=== PATIENT | female | born 1960 | race Caucasian/White ===

== ENCOUNTER 2017-10-11 06:02 | Inpatient (IN) | payer MEDICARE ==
[2017-10-09 17:18] LABS: MICROSCOPIC NOT IND
[2017-10-09 17:20] LABS: BASOPHILS # (AUTO) 0.05 x10^3/uL (0-0.1); BASOPHILS % (AUTO) 1 % (0-1); EOSINOPHILS # (AUTO) 0.23 x10^3/uL (0-0.4); EOSINOPHILS % (AUTO) 5 % (1-7); LYMPHOCYTES # (AUTO) 1.68 x10^3/uL (1-3.4); LYMPHOCYTES % (AUTO) 34 % (22-44); MD NO; MEAN CORPUSCULAR HEMOGLOBIN 31.3 pg (27.0-34.8); MEAN CORPUSCULAR VOLUME 92.2 fL (80-100); MEAN PLATELET VOLUME 7.9 fL (7.4-10.4); MONOCYTES # (AUTO) 0.49 x10^3/uL (0.2-0.8); MONOCYTES % (AUTO) 10 % (2-9); NEUTROPHILS # (AUTO) 2.44 x10^3/uL (1.8-6.8); NEUTROPHILS % (AUTO) 50 % (42-75); PLATELET COUNT 241 x10^3/uL (130-400); RED BLOOD COUNT 4.18 x10^6/uL (3.82-5.3)
[2017-10-09 17:24] LABS: ANION GAP 6 mmol/L (5-15); CHLORIDE 103 mmol/L (98-107); CREATININE 0.86 mg/dL (0.55-1.02)
[2017-10-09 17:32] LABS: INTERNATIONAL NORMALIZED RATIO 0.97 (0.93-1.1)
[2017-10-09 17:37] LABS: HCT (SEDRATE) 38.6 % (34.6-47.8)
[~2017-10-11] VITALS: Ht 172.7 cm; Wt 63.0 kg
[~2017-10-11 06:02] MED LIST: AMPH20TA2 PO; DIAZ5TAB PO; ESTR1PAT10 TD; GABA-826 PO; OXYC-306 PO
[2017-10-11 06:26] VITALS: BP 139/89
[2017-10-11] MEDS ORDERED: LACTATED RINGERS 1,000 ML IV SCH (06:32)
[2017-10-11] MEDS ORDERED: LIDOCAINE-MPF 1%, 2ML ONE (06:33)
[2017-10-11] MEDS ORDERED: LIDOCAINE-MPF 2%, 2ML ONE (06:34)
[2017-10-11] MEDS ORDERED: LIDOCAINE-MPF 1%, 2ML INFIL ONE (07:00)
[2017-10-11] MEDS ORDERED: BUPIVACAINE/PF-EPI 0.5% 1:200K ONE (07:35)
[2017-10-11] MEDS ORDERED: BACITRACIN 50,000 UNIT ONE (07:36)
[2017-10-11] MEDS ORDERED: THROMBIN 20,000 UNIT VIAL TP ONE (07:36)
[2017-10-11] MEDS ORDERED: TRANEXAMIC ACID 100 MG/ML, 10ML ONE (07:36)
[2017-10-11] MEDS ORDERED: MIDAZOLAM 1 MG/ML, 2ML ONE (07:40)
[2017-10-11] MEDS ORDERED: FENTANYL PF 100 MCG/2ML ONE ×2 (07:40→10:23)
[2017-10-11] MEDS ORDERED: PROPOFOL 50 ML ONE ×2 (07:42→09:11)
[2017-10-11] MEDS ORDERED: SCOPOLAMINE PATCH, 1.5MG PATCH.TD72 TD ONE (08:00)
[2017-10-11] MEDS ORDERED: OXYcodone IR 5MG TABLET PO ONE (08:00)
[2017-10-11] MEDS ORDERED: ACETAMINOPHEN 500 MG TABLET PO ONE (08:00)
[2017-10-11] MEDS ORDERED: GABAPENTIN 300 MG CAPSULE PO ONE (08:00)
[2017-10-11] MEDS ORDERED: FAMOTIDINE 20 MG TABLET PO ONE (08:00)
[2017-10-11] MEDS ORDERED: DIAZEPAM 5 MG TABLET PO ONE (08:00)
[2017-10-11] MEDS ORDERED: ONDANSETRON 2MG/ML, 2ML IVPush ONE (08:00)
[2017-10-11] MEDS ORDERED: HYDROmorphone 2 MG/ML, 1ML ONE (10:23)
[2017-10-11] MEDS: FENTANYL PF 100 MCG/2ML IV PRN ×2 (10:25→10:41)
[2017-10-11] MEDS ORDERED: KETOROLAC 30 MG/1 ML ONE (10:28)
[2017-10-11] MEDS ORDERED: ONDANSETRON 2MG/ML, 2ML IV PRN ×2 (10:30→13:30)
[2017-10-11] MEDS ORDERED: LABETALOL 5MG/ML, 20ML IV PRN ×2 (10:30→13:30)
[2017-10-11] MEDS ORDERED: MIDAZOLAM 1 MG/ML, 2ML IV PRN (10:30)
[2017-10-11] MEDS ORDERED: DIAZEPAM 5 MG/ML, 2ML IV PRN ×2 (10:30→13:30)
[2017-10-11] MEDS ORDERED: OXYcodone 5 MG/5 ML ORAL.SOL UDC PO PRN (10:30)
[2017-10-11] MEDS ORDERED: EPHEDRINE 50 MG/ML, 1ML IVPush PRN (10:30)
[2017-10-11] MEDS ORDERED: MEPERIDINE/PF 25MG/0.5ML IVPush PRN (10:30)
[2017-10-11] MEDS ORDERED: hydrALAzine 20 MG/ML, 1ML IV PRN (10:30)
[2017-10-11] MEDS ORDERED: HYDROmorphone 2 MG/ML, 1ML IV PRN (10:30)
[2017-10-11] MEDS ORDERED: ALBUTEROL SULFATE 2.5 MG/3 ML NPPB PRN (10:30)
[2017-10-11] MEDS ORDERED: OXYcodone 5 MG/5 ML ORAL.SOL UDC ONE (11:11)
[2017-10-11 11:55] VITALS: BP 138/95
[2017-10-11] MEDS ORDERED: morphine SULFATE 10 MG/ML, 1ML ONE (13:11)
[2017-10-11] MEDS: morphine SULFATE 10 MG/ML, 1ML IV PRN ×2 (13:20→22:25)
[2017-10-11] MEDS ORDERED: ACETAMINOPHEN 650 MG SUPP PR PRN (13:30)
[2017-10-11] MEDS ORDERED: DIAZEPAM 5 MG TABLET PO PRN ×2 (13:30→14:00)
[2017-10-11] MEDS ORDERED: KETOROLAC 30 MG/1 ML IV ONE (13:30)
[2017-10-11] MEDS ORDERED: ACETAMINOPHEN 500 MG TABLET PO PRN (13:30)
[2017-10-11] MEDS ORDERED: LORazepam 1MG TABLET PO PRN (13:30)
[2017-10-11] MEDS ORDERED: ACETAMINOPHEN 325 MG TABLET PO PRN (13:30)
[2017-10-11] MEDS ORDERED: MAGNESIUM HYDROXIDE 8%, 30ML UDC PO PRN (13:30)
[2017-10-11] MEDS ORDERED: BISACODYL 10 MG SUPP PR PRN (13:30)
[2017-10-11] MEDS ORDERED: OXYcodone IR 5MG TABLET PO PRN (13:30)
[2017-10-11] MEDS ORDERED: PROMETHAZINE 25 MG/ML, 1ML IM PRN (13:30)
[2017-10-11] MEDS: LABETALOL 5MG/ML, 20ML IV SCH ×2 (13:47→22:26)
[2017-10-11] MEDS ORDERED: SODIUM CHLORIDE 0.9% 1,000 ML IV PRN (14:00)
[2017-10-11] MEDS ORDERED: ESTRADIOL 0.1 MG/24 HR PATCH TD SCH (14:00)
[2017-10-11 14:18] VITALS: BP 148/91
[2017-10-11] MEDS: OXYcodone IR 5MG TABLET PO PRN ×2 (14:45→18:44)
[2017-10-11] MEDS ORDERED: CEFAZOLIN 1,000 MG ONE (15:49)
[2017-10-11] MEDS ORDERED: PROPOFOL 10 MG/ML, 20ML ONE (15:49)
[2017-10-11] MEDS ORDERED: ONDANSETRON 2MG/ML, 2ML ONE (15:49)
[2017-10-11] MEDS ORDERED: ROCURONIUM 10MG/ML,5ML ONE (15:49)
[2017-10-11] MEDS ORDERED: SUCCINYLCHOLINE 20 MG/ML, 10ML ONE (15:49)
[2017-10-11] MEDS ORDERED: DEXAMETHASONE 4 MG/ML, 1ML ONE (15:49)
[2017-10-11] MEDS: D5%-0.9% NACL+KCL 20MEQ 1,000 ML IV SCH (16:39)
[2017-10-11] MEDS: CEFAZOLIN PMX 1GM/50ML 50 ML IVPB SCH (16:39)
[2017-10-11] MEDS: GABAPENTIN 100 MG CAPSULE PO SCH ×2 (16:39→22:25)
[2017-10-11 18:39] VITALS: BP 135/86
[2017-10-11] MEDS ORDERED: ZOLPIDEM 5MG TABLET PO PRN (21:00)
[2017-10-11] MEDS: ADDERALL PO SCH (22:25)
[2017-10-12] VITALS: BP 135/81
[2017-10-12] MEDS: CEFAZOLIN PMX 1GM/50ML 50 ML IVPB SCH (00:22)
[2017-10-12] MEDS: D5%-0.9% NACL+KCL 20MEQ 1,000 ML IV SCH ×3 (02:43→20:46)
[2017-10-12 04:32] VITALS: BP 122/78
[2017-10-12 05:18] LABS: BASOPHILS # (AUTO) 0.03 x10^3/uL (0-0.1); BASOPHILS % (AUTO) 0 % (0-1); EOSINOPHILS # (AUTO) 0.03 x10^3/uL (0-0.4); EOSINOPHILS % (AUTO) 0 % (1-7); LYMPHOCYTES # (AUTO) 1.09 x10^3/uL (1-3.4); LYMPHOCYTES % (AUTO) 11 % (22-44); MD NO; MEAN CORPUSCULAR HEMOGLOBIN 30.6 pg (27.0-34.8); MEAN CORPUSCULAR HGB CONC 33.3 g/dL (32.4-35.8); MEAN PLATELET VOLUME 7.9 fL (7.4-10.4); MONOCYTES % (AUTO) 9 % (2-9); NEUTROPHILS # (AUTO) 7.56 x10^3/uL (1.8-6.8); NEUTROPHILS % (AUTO) 79 % (42-75); PLATELET COUNT 196 x10^3/uL (130-400); RED BLOOD COUNT 4.04 x10^6/uL (3.82-5.3); RED CELL DISTRIBUTION WIDTH 12.2 % (9.6-15.2)
[2017-10-12] MEDS: morphine SULFATE 10 MG/ML, 1ML IV PRN (06:51)
[2017-10-12] MEDS: LABETALOL 5MG/ML, 20ML IV SCH ×3 (06:51→20:49)
[2017-10-12 08:29] VITALS: BP 133/83
[2017-10-12] MEDS: DEXTROAMPHETAMINE PO SCH (08:34)
[2017-10-12] MEDS: [UNRECOGNIZED DRUG - OTHER] PO SCH (08:34)
[2017-10-12] MEDS: AMPHETAMINE PO SCH (08:34)
[2017-10-12] MEDS: GABAPENTIN 100 MG CAPSULE PO SCH ×3 (08:35→20:44)
[2017-10-12] MEDS: SENNA/DOCUSATE TABLET PO SCH ×2 (08:35→15:02)
[2017-10-12] MEDS: DEXAMETHASONE 4 MG/ML, 1ML IVPush PRN ×2 (10:23→16:47)
[2017-10-12 13:07] VITALS: BP 118/71
[2017-10-12] MEDS: OXYcodone IR 5MG TABLET PO PRN ×2 (15:01→20:49)
[2017-10-12] MEDS: KETOROLAC 30 MG/1 ML IV PRN (16:47)
[2017-10-12 20:23] VITALS: BP 130/72
[2017-10-12] MEDS: ADDERALL PO SCH (20:44)
[2017-10-13] MEDS: KETOROLAC 30 MG/1 ML IV PRN (00:40)
[2017-10-13 01:27] VITALS: BP 96/61
[2017-10-13] MEDS: LABETALOL 5MG/ML, 20ML IV SCH (05:16)
[2017-10-13] MEDS: D5%-0.9% NACL+KCL 20MEQ 1,000 ML IV SCH (05:16)
[2017-10-13 05:38] LABS: BASOPHILS # (AUTO) 0.01 x10^3/uL (0-0.1); BASOPHILS % (AUTO) 0 % (0-1); EOSINOPHILS % (AUTO) 0 % (1-7); LYMPHOCYTES # (AUTO) 0.86 x10^3/uL (1-3.4); LYMPHOCYTES % (AUTO) 10 % (22-44); MD NO; MEAN CORPUSCULAR HEMOGLOBIN 31.7 pg (27.0-34.8); MEAN CORPUSCULAR HGB CONC 34.1 g/dL (32.4-35.8); MEAN CORPUSCULAR VOLUME 92.9 fL (80-100); MEAN PLATELET VOLUME 8.1 fL (7.4-10.4); MONOCYTES # (AUTO) 0.96 x10^3/uL (0.2-0.8); MONOCYTES % (AUTO) 12 % (2-9); NEUTROPHILS # (AUTO) 6.55 x10^3/uL (1.8-6.8); NEUTROPHILS % (AUTO) 78 % (42-75); PLATELET COUNT 214 x10^3/uL (130-400); RED BLOOD COUNT 4.07 x10^6/uL (3.82-5.3); RED CELL DISTRIBUTION WIDTH 12.2 % (9.6-15.2)
[2017-10-13] MEDS: OXYcodone IR 5MG TABLET PO PRN ×2 (05:58→11:58)
[2017-10-13 06:59] VITALS: BP 109/66
[2017-10-13] MEDS ORDERED: SUMATRIPTAN 50 MG TABLET PO PRN (08:30)
[2017-10-13] MEDS: [UNRECOGNIZED DRUG - OTHER] PO SCH (08:58)
[2017-10-13] MEDS: DEXTROAMPHETAMINE PO SCH (08:58)
[2017-10-13] MEDS: AMPHETAMINE PO SCH (08:58)
[2017-10-13] MEDS: SENNA/DOCUSATE TABLET PO SCH (08:58)
[2017-10-13] MEDS: GABAPENTIN 100 MG CAPSULE PO SCH (08:59)
[2017-10-13] MEDS ORDERED: ESTRADIOL 0.1 MG/24 HR PATCH TD SCH (09:00)
[2017-10-13] MEDS ORDERED: OXYC10TA6 PO (12:49)
[2017-10-13] MEDS ORDERED: DIAZ5TAB4 PO (12:49)
[2017-10-13 12:50] VITALS: BP 118/64
== END 2017-10-13 13:12 | disposition home or self-care (01) | DRG 472 ==
LOC: OUT 06:02 → 4NOR 11:49 → OUT 11:50 → 4NOR 11:50
PROVIDERS: ADMIT Orthopaedic Surgery Orthopaedic Surgery of the Spine; ATTEND Orthopaedic Surgery Orthopaedic Surgery of the Spine
PROC: 0RG10A0 Fusion of Cervical Vertebral Joint with Interbody Fusion Device, Anterior Approach, Anterior Column, Open Approach (ICD-10-PCS; 2017-10-11)
PROC: 00NW0ZZ Release Cervical Spinal Cord, Open Approach (ICD-10-PCS; 2017-10-11)
PROC: 0RB30ZZ Excision of Cervical Vertebral Disc, Open Approach (ICD-10-PCS; 2017-10-11)
PROC: 4A11X4G Monitoring of Peripheral Nervous Electrical Activity, Intraoperative, External Approach (ICD-10-PCS; 2017-10-11)
PROC: 0PU30JZ Supplement Cervical Vertebra with Synthetic Substitute, Open Approach (ICD-10-PCS; 2017-10-11)
PROC: 0RB30ZZ Excision of Cervical Vertebral Disc, Open Approach (ICD-10-PCS; principal; 2017-10-11 08:00)
DX: M48.02 Spinal stenosis, cervical region (principal); M50.022 Cervical disc disorder at C5-C6 level with myelopathy; M50.122 Cervical disc disorder at C5-C6 level with radiculopathy; Z88.5 Allergy status to narcotic agent; Z88.8 Allergy status to other drugs, medicaments and biological substances; Z98.1 Arthrodesis status
CPT/HCPCS: 36415; 71046; 72040; 80048; 81003; 85025; 85610; 85651; 85730; 93005; C1713; J0690; J1100; J1170; J1885; J2250; J2405; J2704; J3010; J3360; J3490; C1760; C1762; J0330; J2270; J3480; J7120